=== PATIENT | male | born 1970 | race Hispanic/Latino ===

== ENCOUNTER 2017-10-27 06:20 | Emergency (ER) | payer OTHER ==
[2017-10-27 06:21] VITALS: BMI 31.4
[2017-10-27 07:09] VITALS: TEMP 98.9; O2SAT 98
--- NOTE | 2017-10-27 07:35 | ED PDOC ---
Arrival/HPI - General Chief Complaint: Palpitations Time Seen by Provider: 10/27/17 07:06 Historian: Patient - History of Present Illness Narrative History of Present Illness (Text): 10/27/17 07:35 A 47 year old male, who denies any past medical history, presents to the emergency department complaining of intermittent left arm tingling/numbness for a week. Patient reports symptoms currently resolved and developed about two hours ago. Denies having these symptoms in the past. Patient states he thinks he is having a heart attack. Patient denies any shortness of breath, chest pain or any other complaints at this time. Patient is a smoker. PMD: None Time/Duration: 1 week Symptom Onset: Sudden Symptom Course: Resolved Activities at Onset: Rest Context: Home Past Medical History - Provider Review Nursing Documentation Reviewed: Yes - Infectious Disease Hx of Infectious Diseases: None - Tetanus Immunization Tetanus Immunization: Unknown - Past Medical History Past Medical History: No Previous - Hematological/Oncological Hx Blood Transfusions: No Hx Blood Transfusion Reaction: No - Psychiatric Hx Substance Use: No - Past Surgical History Past Surgical History: No Previous - Anesthesia Hx Anesthesia Reactions: No Hx Malignant Hyperthermia: No - Suicidal Assessment Feels Threatened In Home Enviroment: No Family/Social History - Physician Review Nursing Documentation Reviewed: Yes Family/Social History: No Known Family HX Smoking Status: Former Smoker Hx Alcohol Use: Yes Hx Substance Use: No Hx Substance Use Treatment: No Allergies/Home Meds Allergies/Adverse Reactions: Allergies No Known Allergies Allergy (Verified 06/12/16 13:49) Home Medications: Home Meds Medication Instructions Recorded Confirmed No Known Home Med 06/12/16 06/12/16 Review of Systems - Physician Review All systems were reviewed & negative as marked: Yes - Review of Systems Respiratory: absent: SOB Cardiovascular: absent: Chest Pain Musculoskeletal: Other (left arm numbness/tingling) Physical Exam Vital Signs Reviewed: Yes Vital Signs Temp Pulse Resp BP Pulse Ox 10/27/17 07:08 98.9 F 83 16 126/80 98 Temperature: Afebrile Blood Pressure: Normal Pulse: Regular Respiratory Rate: Normal Appearance: Positive for: Well-Appearing, Non-Toxic, Comfortable Pain Distress: None Mental Status: Positive for: Alert and Oriented X 3 - Systems Exam Head: Present: Atraumatic, Normocephalic Pupils: Present: PERRL Extroacular Muscles: Present: EOMI Conjunctiva: Present: Normal Mouth: Present: Moist Mucous Membranes Neck: Present: Normal Range of Motion Respiratory/Chest: Present: Clear to Auscultation, Good Air Exchange. No: Respiratory Distress, Accessory Muscle Use Cardiovascular: Present: Regular Rate and Rhythm, Normal S1, S2. No: Murmurs Abdomen: Present: Normal Bowel Sounds. No: Tenderness, Distention, Peritoneal Signs Back: Present: Normal Inspection Upper Extremity: Present: Normal Inspection. No: Cyanosis, Edema Lower Extremity: Present: Normal Inspection. No: Edema Neurological: Present: GCS=15, CN II-XII Intact, Speech Normal Skin: Present: Warm, Dry, Normal Color. No: Rashes Psychiatric: Present: Alert, Oriented x 3, Normal Concentration, Anxious Medical Decision Making ED Course and Treatment: 10/27/17 07:34 Impression: A 47 year old male with left arm tingling/ numbness. Plan: -- EKG -- labs -- Aspirin -- Reassess and disposition Prior Visits: Notes and results from previous visits were reviewed. Patient was last seen in the emergency department on 06/12/16 for evaluation of chest discomfort and heart palpitations. Progress Notes: EKG: Ordered, reviewed, and independently interpreted the EKG. Rate : 78 BPM Rhythm : NSR Interpretation : Normal intervals, normal axis - Lab Interpretations Lab Results: 10/27/17 07:50 10/27/17 07:50 Lab Results 10/27/17 10:30: Troponin I < 0.01 10/27/17 07:50: Sodium 141, Potassium 4.3, Chloride 102, Carbon Dioxide 28, Anion Gap 15, BUN 11, Creatinine 0.8, Est GFR ( Amer) > 60, Est GFR (Non- Af Amer) > 60, Random Glucose 102, Calcium 9.3, Total Bilirubin 0.3, AST 33, ALT 40, Alkaline Phosphatase 53, Troponin I < 0.01, Total Protein 7.3, Albumin 4.1, Globulin 3.2, Albumin/Globulin Ratio 1.3 10/27/17 07:50: WBC 7.3 D, RBC 4.46, Hgb 13.2 L, Hct 40.4 L, MCV 90.6, MCH 29.6 , MCHC 32.7, RDW 13.5, Plt Count 217, MPV 10.9, Gran % 58.7, Lymph % (Auto) 26.2 , [place] % (Auto) 12.0 H, Eos % (Auto) 2.7, Baso % (Auto) 0.4, Gran # 4.27, Lymph # (Auto) 1.9, [place] # (Auto) 0.9 H, Eos # (Auto) 0.2, Baso # (Auto) 0.03 I have reviewed the lab results: Yes - EKG Interpretation Interpreted by ED Physician: Yes Type: 12 lead EKG - Medication Orders Current Medication Orders: Discontinued Medications Aspirin (Aspirin) 325 mg PO STAT STA Stop: 10/27/17 07:26 Last Admin: 10/27/17 07:44 Dose: 325 mg - Scribe Statement The provider has reviewed the documentation as recorded by the Buzz Paniagua Provider Scribe Attestation: All medical record entries made by the Sanderibasim were at my direction and personally dictated by me. I have reviewed the chart and agree that the record accurately reflects my personal performance of the history, physical exam, medical decision making, and the department course for this patient. I have also personally directed, reviewed, and agree with the discharge instructions and disposition. Disposition/Present on Arrival - Present on Arrival Any Indicators Present on Arrival: No History of DVT/PE: No History of Uncontrolled Diabetes: No Urinary Catheter: No History of Decub. Ulcer: No History Surgical Site Infection Following: None - Disposition Have Diagnosis and Disposition been Completed?: Yes Diagnosis: Atypical chest pain Disposition: HOME/ ROUTINE Disposition Time: 11:15 Patient Plan: Discharge Condition: STABLE Discharge Instructions (ExitCare): Chest Pain (ED) Additional Instructions: Take aspirin 81mg daily. see your doctor and discuss scheduling a cardiac stress as an outpatient. Return to ER if symptoms get worse. Referrals: PCP,NO [Primary Care Provider] - Follow up with primary Forms: [employer] ([place])
[2017-10-27 07:59] LABS: BASO # 0.03 K/mm3 (0.0-2.0); BASO % 0.4 % (0.0-3.0); EOS # 0.2 (0.0-0.7); EOS % 2.7 % (1.5-5.0); GRAN # 4.27 (1.4-6.5); GRAN % 58.7 % (50.0-68.0); HEMOGLOBIN 13.2 g/dL (14.0-18.0); LYMPH # 1.9 (1.2-3.4); LYMPH % 26.2 % (22.0-35.0); MEAN CELL VOLUME 90.6 fl (80.0-105.0); MEAN CORPUSCULAR HEMOGLOBIN 29.6 pg (25.0-35.0); MEAN CORPUSCULAR HGB CONC 32.7 g/dl (31.0-37.0); MEAN PLATELET VOLUME 10.9 fl (7.0-11.0); MONO # 0.9 (0.1-0.6); RBC 4.46 10^6/uL (3.5-6.1); RED CELL DISTRIBUTION WIDTH 13.5 % (11.5-14.5); WHITE BLOOD COUNT 7.3 10^3/ul (4.5-11.0)
[2017-10-27 08:10] LABS: ALB/GLOB RATIO 1.3 (1.1-1.8); ALBUMIN 4.1 g/dL (3.0-4.8); ALT/SGPT 40 U/L (7-56); AST/SGOT 33 U/L (17-59); BLOOD UREA NITROGEN 11 mg/dL (7-21); CALCIUM 9.3 mg/dL (8.4-10.5); GFR AFRICAN-AMERICAN > 60; GFR NON-AFRICAN AMERICAN > 60
[2017-10-27 08:21] LABS: TROPONIN I < 0.01 ng/mL
--- NOTE | 2017-10-27 09:50 | CARD ---
APPROVED REPORT EKG Measurement Heart [id number] <Conclusion> Normal sinus rhythm Rightward axis
[2017-10-27 11:45] VITALS: BP 130/87; PULSE 97; RESP 18
== END 2017-10-27 12:18 | disposition home or self-care (01) ==
LOC: ED 06:20
DX: R07.89 Other chest pain (principal)